=== PATIENT | female | born 1985 | race American Indian/Alaskan Native ===

== ENCOUNTER → 2021-08-08 | Outpatient (CLI) | payer OTHER | LOC: COL.RAD 07:35 | DX: H53.9 Unspecified visual disturbance (principal); R20.2 Paresthesia of skin; R53.83 Other fatigue; R90.89 Other abnormal findings on diagnostic imaging of central nervous system; R25.1 Tremor, unspecified ==

== ENCOUNTER 2022-06-19 04:51 | Emergency (ER) | payer SELFPAY ==
[~2022-06-19] VITALS: Ht 170.2 cm; Wt 95.5 kg
[~2022-06-19 04:51] MED LIST: BENTYL 20MG20 MG/TAB PO; NAPROSYN500 MG PO; REGLAN 10MG10 MG/TAB PO
[2022-06-19 05:12] VITALS: TEMP 98.2
[2022-06-19] MEDS ORDERED: ANTIVERT 25MG25 MG PO (05:15)
[2022-06-19] MEDS ORDERED: FLOVENT 220MCG7.9 GM IH (05:15)
[2022-06-19 05:34] LABS: BASO # 0.1 K/mm3 (0.0-0.2); BASO % 0.7 % (0.0-2.0); EOS # 0.2 K/mm3 (0.0-0.7); EOS % 2.7 % (0.0-4.0); GRAN # 4.1 K/mm3 (1.4-6.5); GRAN % 60.4 % (42.2-75.2); HEMATOCRIT 41.4 % (37.0-47.0); HEMOGLOBIN 14.8 g/dl (12.5-16.0); LYMPH # 1.9 K/mm3 (1.2-3.4); LYMPH % 28.3 % (20.0-51.0); MEAN CELL VOLUME 88 fl (80.0-100.0); MEAN CORPUSCULAR HEMOGLOBIN 32 pg (27-31); MEAN CORPUSCULAR HGB CONC 36 g/dl (33.0-37.0); MONO # 0.5 K/mm3 (0.1-0.6); MONO % 7.8 % (1.7-9.3); PLATELET COUNT 248 K/mm3 (130-400); REDCELL DISTRIBUTION WIDTH-CV 11.9 % (11.5-14.5)
[2022-06-19 05:52] LABS: ALBUMIN 4.1 gm/dL (3.5-5.0); BILIRUBIN,TOTAL 0.7 mg/dL (0.2-1.2); C-REACTIVE PROTEIN 0.14 mg/dL (0.00-0.50); CALCIUM 9.7 mg/dL (8.4-10.2); CREATININE, serum 0.82 mg/dL (0.57-1.11); POTASSIUM 3.8 mmol/L (3.5-4.5); TOTAL PROTEIN 7.7 gm/dL (6.2-8.1)
[2022-06-19 08:38] VITALS: BP 122/76; PULSE 68
== END 2022-06-19 08:38 | disposition home or self-care (01) ==
LOC: COL.ER 04:51
PROVIDERS: Family Medicine
DX: R10.31 Right lower quadrant pain (principal); Z87.42 Personal history of other diseases of the female genital tract
CPT/HCPCS: J7120

== ENCOUNTER 2022-08-30 04:45 | Emergency (ER) | payer OTHER ==
[~2022-08-30] VITALS: Ht 170.2 cm; Wt 97.7 kg
[~2022-08-30 04:45] MED LIST changes: +ANTIVERT 25MG25 MG PO; +FLOVENT 220MCG7.9 GM IH
[2022-08-30 04:52] VITALS: TEMP 97.8
[2022-08-30 05:06] LABS: BASO # 0.1 K/mm3 (0.0-0.2); BASO % 1.3 % (0.0-2.0); EOS # 0.1 K/mm3 (0.0-0.7); EOS % 1.7 % (0.0-4.0); GRAN # 3.3 K/mm3 (1.4-6.5); GRAN % 46.5 % (42.2-75.2); HEMATOCRIT 44.9 % (37.0-47.0); HEMOGLOBIN 15.4 g/dl (12.5-16.0); LYMPH # 2.8 K/mm3 (1.2-3.4); LYMPH % 39.5 % (20.0-51.0); MEAN CELL VOLUME 91 fl (80.0-100.0); MEAN CORPUSCULAR HEMOGLOBIN 31 pg (27-31); MEAN CORPUSCULAR HGB CONC 34 g/dl (33.0-37.0); MEAN PLATELET VOLUME 9.8 fl (7.4-10.4); MONO # 0.8 K/mm3 (0.1-0.6); MONO % 10.7 % (1.7-9.3); PLATELET COUNT 307 K/mm3 (130-400); RED BLOOD COUNT 4.94 M/mm3 (4.10-5.30); REDCELL DISTRIBUTION WIDTH-CV 12.2 % (11.5-14.5)
[2022-08-30 05:24] LABS: ALANINE AMINOTRANSFERASE 32 U/L (0-55); ALBUMIN 4.4 gm/dL (3.5-5.0); ALKALINE PHOSPHATASE 58 U/L (40-150); ANION GAP 9 mmol/L (7-16); AST,SGOT 30 U/L (5-34); BILIRUBIN,TOTAL 0.7 mg/dL (0.2-1.2); BLOOD UREA NITROGEN 14 mg/dL (7-19); CALCIUM 10.3 mg/dL (8.4-10.2); CARBON DIOXIDE 26 mmol/L (22-29); CHLORIDE 104 mmol/L (98-107); CREATININE, serum 0.86 mg/dL (0.57-1.11); GLUCOSE 90 mg/dL (70-99); LIPASE 44 U/L (8-78); POTASSIUM 3.9 mmol/L (3.5-4.5); SODIUM 139 mmol/L (136-145); TOTAL PROTEIN 8.2 gm/dL (6.2-8.1)
[2022-08-30 05:39] LABS: TROPONIN-I < 0.010 ng/mL (0.00-0.033)
[2022-08-30] MEDS ORDERED: ATARAX 25MG25 MG/TAB PO (05:52)
[2022-08-30 05:59] VITALS: BP 134/80; PULSE 64
== END 2022-08-30 05:59 | disposition home or self-care (01) ==
LOC: COL.ER 04:45
PROVIDERS: Emergency Medicine
DX: F41.0 Panic disorder [episodic paroxysmal anxiety] (principal)